=== PATIENT | female | born 1990 | race Caucasian/White ===

== ENCOUNTER 2019-04-05 13:50 | Emergency (ER) | payer MEDICAID ==
[~2019-04-05] VITALS: Ht 165.1 cm; Wt 75.0 kg
[2019-04-05 16:10] VITALS: BP 128/73
== END 2019-04-05 16:20 | disposition home or self-care (01) ==
LOC: ER 13:50
DX: H10.9 Unspecified conjunctivitis (principal)
CPT/HCPCS: 99283